=== PATIENT | male | born 1975 | race Caucasian/White ===

== ENCOUNTER 2016-10-02 13:53 | Emergency (ER) | payer OTHER ==
[~2016-10-02] VITALS: Ht 170.2 cm; Wt 63.5 kg
[~2016-10-02 13:53] MED LIST: ABILIFY 2MG2 MG PO; ALPRAZOLAM1 MG PO; ALPRAZOLAM2 MG PO; CARISOPRODOL250 MG PO; CLONAZEPAM1 MG PO; DIAZEPAM10 MG PO; ESCITALOPRAM20 MG PO; KLONOPIN 1MG TAB1 MG PO; LEXAPRO 10MG10 MG PO; LEXAPRO 20MG M20 MG PO; LEXAPRO10 MG PO; LEXAPRO20 MG PO; MOTRIN800 MG PO; NICODERM C21 MG/24 H TOP; OXYCODONE-ACET1 EACH PO; PERCOCET 325 MG-5 MG PO; PERCOCET 325 MG1 TA2 PO; VALIUM 10 MG. T10 MG PO; VALIUM5 M1 PO; VYVANSE50 MG PO; XANAX0.5 MG PO; XANAX1 MG PO; XANAX2 MG PO
[2016-10-02] MEDS ORDERED: ESCITALOPRAM OX10 MG PO (15:25)
[2016-10-02] MEDS ORDERED: TRAZODONE HCL50 M1 PO ×2 (15:26→16:33)
[2016-10-02] MEDS ORDERED: ALPRAZOLAM2 M2 PO (15:26)
--- NOTE | 2016-10-02 16:28 | ED GENERAL ADULT ---
History of Present Illness General Chief Complaint: General Adult Stated Complaint: DISCUSS MEDICATION Source: patient Exam Limitations: no limitations Vital Signs & Intake/Output Vital Signs & Intake/Output Vital Signs Date Time Temp Pulse Resp B/P Pulse O2 O2 Flow FiO2 Ox Delivery Rate 10/02 1402 97.7 92 16 136/83 97 Room Air Allergies Coded Allergies: penicillin V (UNKNOWN 11/16/15) Reconcile Medications Alprazolam 2 MG TABLET 1 TAB PO BID ANXIETY (Reported) Alprazolam (Xanax) 1 MG TABLET 1 TAB PO BID PRN ANXIETY Escitalopram Oxalate 10 MG TABLET 1 TAB PO BID DEPRESSION (Reported) Escitalopram Oxalate (Lexapro) 10 MG TABLET 1 TAB PO DAILY DEPRESSION Lisdexamfetamine Dimesylate (Vyvanse) 50 MG CAP 1 CAP PO DAILY ANXIETY Trazodone HCl 50 MG TABLET 1 TAB PO QPM ANXIETY (Reported) Trazodone HCl 50 MG TABLET 1 TAB PO QPM PRN SLEEP Triage Note: PT STATES HE MISSED HIS APPT. WITH HIS DRSusana AND HE NEEDS MED REFILLS. PT IS LOOKING REFILLS FOR Triage Nurses Notes Reviewed? yes HPI: This patient is a 41-year-old male with a past medical history of PTSD, major depression, and anxiety disorder who presented to the emergency department today requesting a medication refill. The patient reported that he missed his appointment on 08/30/2016. He reported that he typically sees his doctor every month. He reported that he has had medication refill since then, but it was per the office protocol that he needed to see his doctor at least 3 times in the month of September before another refill could be given. The patient reported that he missed his last appointment and, per the office protocol, he was unable to be given any more prescriptions. The patient presented to the emergency department today with a letter from [facility] from Will [facility]. The letter reads, "due to the attendants policy, he is scheduled to see the doctor/CLEAN ROOM OPERATOR within 3 weeks. He reported that he is out of medication completely and needed to check in at the emergency room. I strongly recommend him for any assistance and can get them until his scheduled appointment. Please find attached medication sheet, showing various medications he is prescribed here at [facility]." The patient is requesting a medication refill of Xanax 2 mg twice a day, Lexapro 20 mg daily, and trazodone 50 mg nightly. (DAWIT ALLAN PA-C) Past History Travel History Traveled to [place] past 21 day No Medical History Any Pertinent Medical History? see below for history Neurological: NONE EENT: NONE Cardiovascular: NONE Respiratory: NONE Gastrointestinal: NONE Hepatic: NONE Renal: NONE Musculoskeletal: NONE Psychiatric: anxiety, depression, CHRONIC ANXIETY Endocrine: NONE Blood Disorders: NONE Cancer(s): NONE SET RIDER/Reproductive: NONE Surgical History Surgical History: appendectomy, cholecystectomy Psychosocial History Who do you live with Father What is your primary language Fijian Tobacco Use: Current Daily Use Daily Tobacco Use Amount/Type: => 5 Cigarettes daily ETOH Use: denies use Illicit Drug Use: denies illicit drug use Family History Hx Contributory? No (DAWIT ALLAN PA-C) Review of Systems Review of Systems Constitutional: Reports: no symptoms. EENTM: Reports: no symptoms. Respiratory: Reports: no symptoms. Cardiovascular: Reports: no symptoms. GI: Reports: no symptoms. Musculoskeletal: Reports: no symptoms. Skin: Reports: no symptoms. Neurological/Psychological: Reports: see HPI. All Other Systems: Reviewed and Negative (DAWIT ALLAN PA-C) Physical Exam Physical Exam General Appearance: well developed/nourished, alert, awake, anxious Comments: Well-developed well-nourished person who is anxious HEENT: Head normocephalic, moist mucous membranes membranes Pupils equally round and reactive to light. Neck: Supple, no lymphadenopathy Back: Normal gait Respiratory: No respiratory distress. Speaking in full sentences Extremity: Normal and equal pulses Neuro: Alert oriented x3, cranial nerves II through XII grossly intact. Skin: No appreciable rash on exposed skin, skin is warm and dry. Psych: Mood and affect is depressed Core Measures ACS in differential dx? No CVA/TIA Diagnosis: No Severe Sepsis Present: No Septic Shock Present: No (DAWIT ALLAN PA-C) Progress Differential Diagnoses I considered the following diagnoses in my evaluation of the patient: [ Medication refill, anxiety, depression, medication] Plan of Care: Current Medications Sig/Alyssia Start time Last Medication Dose Stop Time Status Admin Alprazolam 2 MG ONCE ONE 10/02 1630 UNVr (Xanax) 10/02 1631 Escitalopram Oxalate 20 MG ONCE ONE 10/02 1630 UNVr (Lexapro) 10/02 1631 Initial ED EKG: none (DAWIT ALLAN PA-C) Departure Departure Disposition: HOME OR SELF CARE Condition: Stable Clinical Impression Primary Impression: Medication refill Referrals: BRANDEN KELLY MD (PCP/Family) Additional Instructions: Take medication as prescribed. As discussed, these medication refills cannot be written out from the emergency department for long courses; they also may not be your exact regular dosage. Please be sure to follow-up with your primary care physician for further medication refills. Departure Forms: Customer Survey General Discharge Information Prescriptions: Current Visit Scripts Alprazolam (Xanax) 1 TAB PO BID PRN ANXIETY #10 TAB Escitalopram Oxalate (Lexapro) 1 TAB PO DAILY #10 TAB Trazodone HCl 1 TAB PO QPM PRN SLEEP #10 TAB (DAWIT ALLAN PA-C) PA/MERCHANDISE DISPLAYER Co-Sign Statement Statement: ED Attending supervision documentation- [] I saw and evaluated the patient. I have also reviewed all the pertinent lab results and diagnostic results. I agree with the findings and the plan of care as documented in the PA's/MERCHANDISE DISPLAYER's documentation. [X] I have reviewed the ED Record and agree with the PA's/MERCHANDISE DISPLAYER's documentation. [] Additions or exceptions (if any) to the PAs/MERCHANDISE DISPLAYER's note and plan are summarized below: [] (BRIANNA DOMINGUEZ,DANIELLE) Critical Care Note Critical Care Note Critical Care Time: non-applicable (DAWIT ALLAN PA-C)
[2016-10-02] MEDS ORDERED: LEXAPRO10 M1 PO (16:33)
[2016-10-02] MEDS ORDERED: XANAX1 M1 PO (16:33)
[2016-10-02 16:59] VITALS: BP 129/88
== END 2016-10-02 16:50 ==
LOC: ERH 13:53
DX: Z76.0 Encounter for issue of repeat prescription (principal)
CPT/HCPCS: 99281

== ENCOUNTER 2016-11-13 13:12 | Emergency (ER) | payer OTHER ==
[~2016-11-13] VITALS: Ht 170.2 cm; Wt 68.0 kg
[~2016-11-13 13:12] MED LIST changes: +ALPRAZOLAM2 M2 PO; +ESCITALOPRAM OX10 MG PO; +LEXAPRO10 M1 PO; +TRAZODONE HCL50 M1 PO; +XANAX1 M1 PO
[2016-11-13 13:20] VITALS: BP 104/76
--- NOTE | 2016-11-13 14:05 | ED GENERAL ADULT ---
History of Present Illness General Chief Complaint: Altered Mental Status Stated Complaint: BIBA AMS Source: patient Exam Limitations: no limitations Vital Signs & Intake/Output Vital Signs & Intake/Output ED Intake and Output 11/14 0000 11/13 1200 Intake Total Output Total Balance Patient 150 lb Weight Allergies Coded Allergies: penicillin V (UNKNOWN 11/16/15) Reconcile Medications Alprazolam 2 MG TABLET 1 TAB PO BID ANXIETY (Reported) Alprazolam (Xanax) 1 MG TABLET 1 TAB PO BID PRN ANXIETY Escitalopram Oxalate 10 MG TABLET 1 TAB PO BID DEPRESSION (Reported) Escitalopram Oxalate (Lexapro) 10 MG TABLET 1 TAB PO DAILY DEPRESSION Lisdexamfetamine Dimesylate (Vyvanse) 50 MG CAP 1 CAP PO DAILY ANXIETY Trazodone HCl 50 MG TABLET 1 TAB PO QPM ANXIETY (Reported) Trazodone HCl 50 MG TABLET 1 TAB PO QPM PRN SLEEP Triage Note: PT TO ER BY EMS FROM A LOCAL [facility], THEY WERE CALLED THERE DUE TO PT HAD AMS, ON ARRIVAL PT HAS IV IN L HAND, PT UNABLE TO KEEP HIS EYES OPEN, AND NOTED TO NOT MAKE SENSE, PT ASKED STAFF IF WE BROUGHT [place] OF CLOTHES SO THAT WE COULD GO TO THE [facility], ALSO ASKED THIS NURSE COULD CLEAN THE HOTEL ROOM , PT ADMITS TO BEING ON METHADONE 130 MG DAILY FOR CHRONIC PAIN. PT CONTINUES TO DOSE OFF IN CHAIR, AND NEEDS CONSTANT VERBAL STIMULI . PTS FS WAS 78 ON EMS ARRIVAL, THEY GAVE HIM ORAL GLUCOSE AND FS 85 AT THIS TIME Triage Nurses Notes Reviewed? yes Onset: Just prior to arrival Duration: hour(s): (1) Timing: recent history Injury Environment: home Severity: moderate HPI: Patient is a 41-year-old male with history depression, anxiety who takes Xanax, methadone daily. He reports that he was at a thrift store today when the ambulance was called on him. The ambulance was called because he was altered, slurring his speech. Patient denies taking any other medications than his prescribed dosing. Denies any chest pain palpitations nausea vomiting fever chills. Denies shortness of breath. No palpitations. (ARTEMIO RATLIFF) Past History Travel History Traveled to [place] past 21 day No Medical History Any Pertinent Medical History? see below for history Neurological: NONE EENT: NONE Cardiovascular: NONE Respiratory: NONE Gastrointestinal: NONE Hepatic: NONE Renal: NONE Musculoskeletal: NONE Psychiatric: anxiety, depression, CHRONIC ANXIETY Endocrine: NONE Blood Disorders: NONE Cancer(s): NONE RESEARCH ASSOCIATE MOLECULAR BIOLOGY/Reproductive: NONE Surgical History Surgical History: appendectomy, cholecystectomy Psychosocial History Who do you live with Father What is your primary language Cameroonian Tobacco Use: Current Daily Use Daily Tobacco Use Amount/Type: => 5 Cigarettes daily ETOH Use: occasional use Illicit Drug Use: denies illicit drug use Family History Hx Contributory? No (ARTEMIO RATLIFF) Review of Systems Review of Systems Constitutional: Reports: no symptoms. Comments Review of systems: See HPI, All other systems negative. Constitutional, no chills fever or weight loss HEENT: No visual changes no sore throat no congestion Cardiovascular: No chest pain ,palpitation Skin, no jaundice no rashes Respiratory: No dyspnea cough sputum or hemoptysis GI: No nausea no vomiting : No dysuria No hematuria Muscle skeletal: no back pain, no neck pain, Neurologic: No numbness no confusion Psych: No increased stress anxiety or depression,. Heme/endocrine: No bruising no bleeding no polyuria or polydipsia Immunology: No splenectomy or history of AIDS (ARTEMIO RATLIFF) Physical Exam Physical Exam General Appearance: well developed/nourished, no apparent distress, comfortable, droswy Comments: Well-developed well-nourished person in no acute distress HEENT: extraocular motion intact, no nystagmus. Pupils equally round and reactive to light and accommodation. Pupils are small, 2 mm bilaterally. Nose is atraumatic. External auditory canal and Tympanic membranes clear. Pharynx normal. No swelling or edema. Neck: Normal inspection Back: Nontender Cardiovascular: Regular rate and rhythms no murmurs rubs or gallops, normal JVP Respiratory: Chest nontender. No respiratory distress.breath sounds clear to auscultation bilaterally Extremity: No edema Neuro: Alert oriented x3 Skin: No appreciable rash on exposed skin, skin is warm and dry. Psych: Drowsy, appears intoxicated. Core Measures ACS in differential dx? No CVA/TIA Diagnosis: No Severe Sepsis Present: No Septic Shock Present: No (ARTEMIO RATLIFF) Progress Differential Diagnoses I considered the following diagnoses in my evaluation of the patient: Polysubstance abuse Plan of Care: Patient is alert, appears drowsy at times. Vitals are stable. Lungs clear to auscultation. Patient written that he quit taking his medications as prescribed. Patient will be discharged home with his aunt. his aunt signed the paperwork. Initial ED EKG: none Comments: Patient reports that he took all his medications prior to arrival altogether. Denies any drug user of all use. This patient has been seen and evaluated here several times for polysubstance abuse in the past. no signs of hypoxia. (ARTEMIO RATLIFF) Departure Departure Time of Disposition: 1404 Disposition: HOME OR SELF CARE Condition: Stable Clinical Impression Primary Impression: Polysubstance abuse Referrals: BRANDEN KELLY MD (PCP/Family) Additional Instructions: Take medications as prescribed. Return for worsening symptoms or concerns. Departure Forms: Customer Survey General Discharge Information (ARTEMIO RATLIFF) PA/MEDICATION MANAGER Co-Sign Statement Statement: ED Attending supervision documentation- x I saw and evaluated the patient. I have also reviewed all the pertinent lab results and diagnostic results. I agree with the findings and the plan of care as documented in the PA's/MEDICATION MANAGER's documentation. [] I have reviewed the ED Record and agree with the PA's/MEDICATION MANAGER's documentation. [] Additions or exceptions (if any) to the PAs/MEDICATION MANAGER's note and plan are summarized below: [] (ANNITA DOMINGUEZ,JONO) Critical Care Note Critical Care Note Critical Care Time: non-applicable (ARTEMIO RATLIFF)
== END 2016-11-13 14:10 ==
LOC: ERH 13:12
DX: F11.10 Opioid abuse, uncomplicated (principal); F13.10 Sedative, hypnotic or anxiolytic abuse, uncomplicated